=== PATIENT | female | born 1960 | race Two or more races ===

== ENCOUNTER 2018-04-14 08:10 | Outpatient (CLI) | payer OTHER | END 2018-04-14 08:23 | disposition home or self-care (01) | LOC: SONOGRAMA 08:10 → MAMO-SONO 09:15 | DX: M25.511 Pain in right shoulder (principal) ==

== ENCOUNTER → 2018-08-10 09:48 | Outpatient (CLI) | payer OTHER | END | disposition home or self-care (01) | LOC: LAB 09:48 | DX: D64.89 Other specified anemias (principal); E03.8 Other specified hypothyroidism; E78.2 Mixed hyperlipidemia; I10 Essential (primary) hypertension; R31.1 Benign essential microscopic hematuria; D68.8 Other specified coagulation defects; N39.0 Urinary tract infection, site not specified; Z22.322 Carrier or suspected carrier of Methicillin resistant Staphylococcus aureus; C73 Malignant neoplasm of thyroid gland; R73.01 Impaired fasting glucose; Z76.89 Persons encountering health services in other specified circumstances ==

== ENCOUNTER 2018-08-17 05:54 | Day surgery (SDC) | payer OTHER ==
[~2018-08-17 05:54] MED LIST: ASA81 MG PO; ATORVASTATIN CA10 MG PO; LOSARTAN-HCTZ1 EAC1 PO; METOPROLOL SUCC25 MG PO; NORVASC2.5 MG PO; SYNTHROID100 MCG PO
== END 2018-08-17 14:00 | disposition home or self-care (01) ==
LOC: CIR.AMB 05:54
DX: M75.121 Complete rotator cuff tear or rupture of right shoulder, not specified as traumatic (principal); M19.011 Primary osteoarthritis, right shoulder; M75.21 Bicipital tendinitis, right shoulder

== ENCOUNTER → 2018-11-26 | Outpatient (CLI) | payer OTHER | END | disposition home or self-care (01) | LOC: RAD 501 10:01 | DX: M25.531 Pain in right wrist (principal) ==

== ENCOUNTER 2019-09-01 09:57 | Outpatient (CLI) | payer OTHER | END 2019-09-01 09:59 | disposition home or self-care (01) | LOC: SONOGRAMA 09:57 → MAMO-SONO 10:15 | DX: M75.41 Impingement syndrome of right shoulder (principal) ==